=== PATIENT | female | born 1975 | race American Indian/Alaskan Native ===

== ENCOUNTER 2017-12-01 15:18 | Outpatient (CLI) | payer BC, OTHER | END 2017-12-01 15:19 | disposition home or self-care (01) | LOC: LABHHL 15:18 | PROVIDERS: ATTEND Surgery | DX: N60.01 Solitary cyst of right breast (principal); N60.02 Solitary cyst of left breast; D71 Functional disorders of polymorphonuclear neutrophils | CPT/HCPCS: 88112 ==

== ENCOUNTER 2018-01-10 08:55 | Outpatient (CLI) | payer BC ==
--- NOTE | 2018-01-10 15:15 | Mammography Report ---
BILATERAL DIGITAL SCREENING MAMMOGRAM with CAD and BILATERAL DIGITAL BREAST TOMOSYNTHESIS (DBT) : 01/10/18 CLINICAL: Routine screening. COMPARISON:01/08/17 FINDINGS: The breasts are extremely dense which limits the sensitivity of mammography. A left upper outer biopsy clip. Bilateral circumscribed densities require additional imaging. No architectural distortion or suspicious calcifications. IMPRESSION: Bilateral circumscribed masses or cysts requiring additional workup. BI-RADS CATEGORY: 0 - - Needs Additional Imaging RECOMMENDATION: Recall for bilateral global breast ultrasound. COMMENT: Patient follow-up letters are generated by our [employer] application.
== END 2018-01-10 08:56 | disposition home or self-care (01) ==
LOC: SPVWC 08:55
PROVIDERS: ATTEND Surgery
DX: Z12.31 Encounter for screening mammogram for malignant neoplasm of breast (principal)
CPT/HCPCS: 77063; 77067